=== PATIENT | female | born 1945 | race Caucasian/White ===

== ENCOUNTER → 2017-03-21 | Outpatient (CLI) | payer MEDICARE, OTHER ==
[~2017-03-21] MED LIST: ADVAIR 500-501 EACH IH; ALLERGY SHOT; AMLODIPINE BESYL5 MG PO; CARAFATE1 GM PO; ECOTRIN81 M1 PO; GABAPENTIN300 M2 PO; HYDROCHLOROTH12.5 M1 PO; HYOMAX0.125 MG PO; PRILOSEC20 M1 PO; PROZAC PO; ROBAXIN 750750 M1 PO; SYNTHROID125 PO; TRILIPIX135 MG PO; TYLENOL500 MG PO; ZEBETA10 MG PO; [UNRECOGNIZED DRUG - OTHER] PO
--- NOTE | ~2017-03-21 | MR31 ---
[facility] A Service [facility] RADIOLOGY TEXT RESULTS PATIENT: YUE COTTER LOCATION: [facility] : 45 UNIT #: [id number] AGE: [address]: Riccardo Zavala MD SEX: F ORDER DR: [id number] [place] [id number] O MR#: [id number] Acc #: [id number] NAME: YUE COTTER : 1945 SEX: F STUDY DATE/TIME: 03/21/2017 9:10 UNIT: [facility] ROOM: STUDY DESCRIPTION: MR Cervical WWo Contrast Attending Physician: Riccardo Zavala M.D. Referring Physician: Riccardo Zavala M.D. Ordering Physician: Pina Tinsley A.P.R.N. Primary Care Physician: Mc Pierce D.O. MRI CENTER REPORT This report is preliminary unless electronic signature is present. EXAM Cervical spine MRI with and without contrast 03/21/2017 PROCEDURE Routine cervical spine MRI with and without contrast. COMPARISON Prior study 04/22/2013. CLINICAL HISTORY Chronic neck pain and left shoulder pain for greater than 10 years. FINDINGS There has been previous cervical fusion from about C5-C7 both anteriorly and posteriorly. There is a loss of lordosis and there is metallic field distortion. Allowing for metallic field distortion, there is no abnormal cord signal. Postcontrast images show no abnormal enhancement. Bone marrow signal appears normal and the posterior fossa and its contents appear normal. At C2-3, allowing for motion the canal and foramina appear normal. At C3-4, again there is motion degradation and there may be mild canal stenosis, and question slight cord compression though that is not at all definite. It appears though the central canal appears more compromised than on the prior study. At C4-5, there is a combination of motion and metallic field distortion, probably mild canal stenosis probably slightly worsened since the prior study with possible but not definite cord compression. Possible mild right and no definite left foraminal stenosis. [facility] A Service [facility] RADIOLOGY TEXT RESULTS PATIENT: YUE COTTER LOCATION: [facility] : 45 UNIT #: [id number] AGE: [address]: Riccardo Zavala MD SEX: F ORDER DR: At C5-6 and C6-7, motion and metallic field distortion heavily limit the exam. There is no gross canal compromise but assessment is limited. At C7-T1, there is no substantial canal or foraminal stenosis. IMPRESSION Motion degraded exam. Slightly worsened canal compromise at C3-4 and C4-5 above the level of fusion. No definite abnormal cord signal. No definite but cannot exclude mild cord compression. No abnormal enhancement. Dictated by... Mauricio Moore M.D. THIS IS AN ELECTRONICALLY VERIFIED REPORT Mauricio Moore M.D. at 03/28/2017 5:37 PM TU/shira TD: 03/24/2017 13:05 JOB #: [id number] MRI CENTER REPORT Page 1 of 1
[2017-03-21 09:55] LABS: POC - CREATININE 0.54 mg/dL (0.44-1.03); POC - GFR >60.0 mL/min (>60)
== END | disposition home or self-care (01) ==
LOC: SMRI 08:44
PROVIDERS: Orthopaedic Surgery Orthopaedic Surgery of the Spine
DX: M50.30 Other cervical disc degeneration, unspecified cervical region (principal); Z98.1 Arthrodesis status
CPT/HCPCS: 72156; 82565; A9581